=== PATIENT | male | born 1940 | race American Indian/Alaskan Native ===

== ENCOUNTER 2018-10-28 18:40 | Emergency (ER) | payer BC ==
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
[2018-10-28] MEDS ORDERED: BOOSTRIX IM ONE (20:55)
[2018-10-28] MEDS ORDERED: ULTRAM PO ONE (20:55)
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
--- NOTE | 2018-10-28 21:32 | Cat Scan Report ---
PROCEDURE: CT HEAD/BRAIN WO CON TECHNIQUE: Computerized tomography of the head was performed without contrast material. CT DOSE LENGTH PRODUCT: mGycm HISTORY: FALL WITH LOC COMPARISONS: None . FINDINGS: Cerebral sulci and ventricles are prominent consistent with cerebral atrophy appropriate for patient' s age. There is mild degree of right jqwbev-eaysrgx-wmjrqrku subdural hemorrhage measuring about 0.5 cm in the maximal thickness and 6 cm in AP dimension. There is no shift of midline structures. Basal cisterns are well maintained. Atherosclerotic calcification is noted involving internal carotid and v ertebral arteries. An air-fluid level is noted in the left maxillary sinus. Small pockets of air note d in the soft tissues lateral to the lateral wall of left orbit and left maxillary sinus. IMPRESSION: Mild degree right dmbklr-cxnvwug-oyxwiega subarachnoid hemorrhage. Air-fluid levels in the left maxillary sinus with adjacent soft tissue air most likely represents hem orrhage into the sinus secondary to fracture. CT of the facial bones is recommended. This document is electronically signed by Pete Vyas MD., October 28 2018 09:30:20 PM ET
--- NOTE | 2018-10-28 21:50 | Cat Scan Report ---
PROCEDURE: CT CERVICAL SPINE WO CON TECHNIQUE: Computerized tomography of the cervical spine was performed from the skull base to T1 wit hout contrast material. CT DOSE LENGTH PRODUCT: mGycm HISTORY: FALL WITH LOC COMPARISONS: None . FINDINGS: There is loss of cervical lordosis. Vertebral height is normal. An acute fracture is not identified. Mild degree broad-based disc osteophyte complex is noted at C5-6 without significant spinal canal com promise. Mild degree of bilateral neural foraminal stenosis right more than left is noted secondary t o uncovertebral degenerative changes. At C6-7 also there is mild degree of broad-based disc osteophyte complex without significant spinal c anal compromise. Mild degree of uncovertebral degenerative changes are noted without significant neur al foraminal compromise. Visualized lung apices are clear. Atherosclerotic calcification is noted involving bilateral carotid bifurcations. An air-fluid level is noted in the left maxillary sinus. IMPRESSION: No acute fracture Loss of cervical lordosis is most likely secondary to spasm Mild degree cervical spondylosis as described above Carotid arterial calcification is noted. Ultrasound evaluation is recommended. Air fluid left maxillary sinus is suspicious for a facial bone fracture This document is electronically signed by Pete Vyas MD., October 28 2018 09:48:32 PM ET
[2018-10-28 22:03] LABS: Basophils # (Auto) 0.1 K/mm3 (0.0-0.1); Basophils % (Auto) 0.6 % (0.0-1.8); Eosinophils % (Auto) 0.2 % (0.0-4.3); Hematocrit 41.4 % (35.5-45.6); Hemoglobin 14.1 gm/dl (11.8-15.2); Lymphocytes % (Auto) 11.3 % (13.4-35.0); Mean Corpuscular HGB Conc 34 % (32-34); Mean Corpuscular Volume 91 fl (84-94); Monocytes # (Auto) 0.6 K/mm3 (0.0-0.8); Monocytes % (Auto) 6.6 % (0.0-7.3); Platelet Count 205 K/mm3 (140-440); Red Blood Count 4.58 M/mm3 (3.65-5.03); Red Cell Distribution Width 13.1 % (13.2-15.2)
[2018-10-28 22:14] LABS: INR 0.92 (0.87-1.13)
[2018-10-28 22:15] LABS: Partial Thromboplastin Time 27.5 Sec. (24.2-36.6)
[2018-10-28 22:17] LABS: Calcium 9.7 mg/dL (8.4-10.2)
[2018-10-28] MEDS ORDERED: NACL 0.9% 1000 ML 1,000 ML IV ONE (22:28)
[2018-10-28] MEDS ORDERED: HumuLIN R SUB-Q ONE (22:29)
--- NOTE | 2018-10-28 23:19 | Cat Scan Report ---
PROCEDURE: CT FACIAL BONES WO CON TECHNIQUE: Computerized tomography of the facial bones and soft tissues with axial and coronal secti ons performed from the cranial aspect of the frontal sinuses to the caudal portion of the mandible wi thout contrast material. Automated exposure control, adjustment of mA and/or kV according to patient size, or iterative reconstruction dose optimization techniques were utilized. CT DOSE LENGTH PRODUCT: mGycm HISTORY: left maxillary AF levl on CT head COMPARISONS: None . FINDINGS: Acute comminuted fracture is noted involving anterior and lateral cruz of left maxillary sinus with an air-fluid level in the left maxillary sinus. The fracture involving the anterior wall of the maxil ginna sinus is extending into the inferior wall of left orbit without any evidence of herniation of th e orbital contents. Otherwise bilateral orbital structures including eyeballs and retrobulbar structu res are within normal limits. A small pocket of air is noted in the preseptal soft tissues are perfor med. A nondisplaced fracture is also noted involving the lateral wall of left orbit. There is evidenc e of associated air in the adjacent soft tissues. Nasal bones, zygomatic arches and mandible are inta ct. Bilateral temporomandibular joints demonstrate normal alignment. IMPRESSION: Acute fractures involving the anterior, lateral and superior cruz of left maxillary sinu s and lateral wall of left orbit associated with adjacent soft tissue air and hemorrhage into the lef t maxillary sinus. This document is electronically signed by Pete Vyas MD., October 28 2018 11:17:36 PM ET
[2018-10-29 01:02] VITALS: BP 166/79
== END 2018-10-29 01:23 | disposition other institution (70) ==
LOC: ED 18:40
DX: S06.6X9A Traumatic subarachnoid hemorrhage with loss of consciousness of unspecified duration, initial encounter (principal); S01.81XA Laceration without foreign body of other part of head, initial encounter; I10 Essential (primary) hypertension; E11.65 Type 2 diabetes mellitus with hyperglycemia; W19.XXXA Unspecified fall, initial encounter; Y93.I9 Activity, other involving external motion; Y92.89 Other specified places as the place of occurrence of the external cause; Y99.8 Other external cause status
CPT/HCPCS: 12011; 36415; 70450; 70486; 72125; 80048; 85025; 85610; 85730; 90471; 90715; 93005; 93010; 96360; 96372; 99285; J7030; J1815